=== PATIENT | female | born 1935 | race Caucasian/White ===

== ENCOUNTER 2016-12-06 14:45 | Emergency (ER) ==
[2016-12-06 14:49] VITALS: BP 166/75; TEMP 99.2; BMI 24.9
--- NOTE | 2016-12-06 16:21 | DI ---
EXAM: Views of the right knee HISTORY: Fall TECHNIQUE: AP lateral, sunrise views of the right knee were obtained. FINDINGS: There is moderate to severe loss of height seen along the medial compartment of the right knee. No acute fractures are seen. The patella is seen in normal position. There is no joint eff usion. IMPRESSION: There is moderate to severe arthritis seen along the medial compartment of the right kn ee. No acute fractures are seen within the right knee.
--- NOTE | 2016-12-06 16:41 | CT ---
EXAM: CT ABDOMEN AND PELVIS HISTORY: Fall, right hip pain and abdominal pain TECHNIQUE: CT abdomen and pelvis without intravenous contrast. Images were reconstructed using 5 m m section thickness. Coronal reformations were prepared. COMPARISON: None FINDINGS: Diagnostic limitations exist without including contrast enhanced images. No evidence of hepatic or splenic injury. Gallbladder, pancreas and adrenal glands appear normal. There is no evidence of re nal obstruction or hematoma. Mild atherosclerotic disease. Small hiatal hernia. Gaseous distension of the rectum. Bowel gas pattern is otherwise unremarkable. No bowel wall hematoma is obvious. Urinary bladder is intact. No uterus is identified. There is no evidence of ascites or hemoperitoneum. No ventral abdominal wall hernia. The bones appear zach neralized. Degenerative changes of the lumbosacral junction. There is a nondisplaced transverse ri ght femoral neck fracture. No other fractures. Joints are intact. Lung bases reveal mild dependen t atelectasis. No pneumoperitoneum. IMPRESSION: 1. Right femoral neck fracture. 2. No organ injury identified.
[2016-12-06] MEDS ORDERED: SODIUM CHLORIDE 1,000 ML IV SCH (17:00)
--- NOTE | 2016-12-06 17:14 | ED.PDOC ---
General ED Provider: Dr. 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 Symptoms Are: Still present Initial Severity: Moderate Current Severity: Moderate Character: Reports: Aching Aggravating: Reports: Movement, Weight-bearing, Ambulation, Palpation Alleviating: Reports: Rest, Immobilization Associated Signs and Symptoms: Denies: LOC, Confusion, Memory loss, Lethargy, Vomiting, Bleeding, Bruising, Swelling, Extremity disuse, Painful respiration, Hoarseness, Dysphagia, Hemoptysis, Significant blood loss Nexus Low Risk Criteria: No post-midline CS tender, No evidence of intoxicat., No Altered LOC, No focal neuro deficit, No distracting injuries Glascow Coma Scale (see protocol): 15, denied neck and back pain Review of Systems - Review Of Systems Constitutional: Reports: No symptoms Eyes: Reports: No symptoms Ears, Nose, Mouth, Throat: Reports: No symptoms Respiratory: Reports: No symptoms Cardiac: Reports: No symptoms GI: Reports: No symptoms : Reports: No symptoms Musculoskeletal: Reports: Joint pain (right hip, knee, elbow ) Skin: Reports: No symptoms Neurological: Reports: No symptoms Endocrine: Reports: No symptoms Hematologic/Lymphatic: Reports: No symptoms All Other Systems: Reviewed and Negative Past Medical History - Past Medical History Previously Healthy: No Endocrine: Reports: Hyperthyroid, Dyslipidemia Cardiovascular: Reports: None Respiratory: Reports: None Hematological: Reports: None Gastrointestinal: Reports: PUD Genitourinary: Reports: None Neuro/Psych: Reports: None Musculoskeletal: Reports: None Cancer: Reports: None Last Menstrual Period: n/a - Surgical History General Surgical History: Reports: Hysterectomy, Other (THYROIDECTOMY) - Family History Family History: Reports: Unknown - Social History Smoking Status: Never smoker Hx Substance Use: No Alcohol Screening: None Physical Exam - Physical Exam Appearance: Well-appearing, No pain distress, Well-nourished Eyes: FAITH, EOMI, Conjunctiva clear ENT: Ears normal, Nose normal, Oropharynx normal Respiratory: Airway patent, Breath sounds clear, Breath sounds equal, Respirations nonlabored Cardiovascular: RRR, Pulses normal, No rub, No murmur GI/: Soft, Nontender, No masses, Bowel sounds normal, No Organomegaly Musculoskeletal: Limited ROM (right hip abrasion right elbow and right knee) Skin: Warm, Dry, Normal color Neurological: Sensation intact, Motor intact, Reflexes intact, Cranial nerves intact, Alert, Oriented Psychiatric: Affect appropriate, Mood appropriate Interpretation - Radiology Interpretation Radiology Interpretation By: Radiologist (fracture femoral neck right sided) Physician Notification - Case Discussed Physician Notified: NELIA GOMEZ Time of Notification: 18:10 (TRANSFER ) Critical Care Note - Critical Care Note Total Time (mins): 0 Course - Course Orders, Labs, Meds: Orders Category Date Time Status EKG-(IP & OP ONLY) DAILY CARDIO 12/08/16 06:00 Stop Req EKG-(IP & OP ONLY) DAILY CARDIO 12/09/16 06:00 Stop Req GIVE HS SNACK 2100 CARE 12/06/16 17:01 Inactive INTAKE & OUTPUT Q8HR CARE 12/06/16 16:59 Inactive CREATINE KINASE Q8H LAB 12/06/16 23:15 Stop Req TROPONIN I Q8H LAB 12/06/16 23:15 Ordered TROPONIN I Q8H LAB 12/07/16 07:15 Ordered Morphine Sulfate [Morphine 4 mg/ml Syringe] MEDS 12/06/16 17:44 Discontinued 2 mg IV ONCE STA Ondansetron HCl/Pf [Zofran 4 mg/2 ml] MEDS 12/06/16 17:44 Discontinued 4 mg IVP ONCE STA CT ABDOMEN/PELVIS WO CONTRAST Stat RADS 12/06/16 15:26 Completed KNEE, RIGHT 4 VIEWS Stat RADS 12/06/16 15:26 Completed Medications Discontinued Medications Generic Name Dose Route Start Last Admin Trade Name Freq PRN Reason Stop Dose Admin Morphine Sulfate 2 mg 12/06/16 17:44 12/06/16 18:14 Morphine 4 Mg/Ml Syringe IV 12/06/16 17:45 2 mg ONCE STA Administration Ondansetron HCl 4 mg 12/06/16 17:44 12/06/16 18:13 Zofran 4 Mg/2 Ml IVP 12/06/16 17:45 4 mg ONCE STA Administration Vital Signs: Temp Pulse Resp BP Pulse Ox 12/06/16 14:46 99.2 F 89 20 166/75 H 93 L Departure - Departure Time of Disposition: 18:00 (AT 6:20P HEAR RATE DROPED TO 38 BUT FLUID CHALLENGE BROUGHT HEART RATE AT 6:34 PM 75 BPM ) Disposition: TSF SHORT-TRM HOSP Discharge Problem: Hip pain, right Hip fracture, right Qualifiers: Fracture type: closed Instructions: Hip Fracture (ED) Condition: Good Pt referred to PMD for follow-up: No Additional Instructions: Please call your Family Physician as soon as possible to schedule a follow-up appointment. Allergies/Adverse Reactions: Allergies Penicillins Adverse Reaction (Verified 05/20/14 19:37) Sulfa (Sulfonamide Antibiotics) Adverse Reaction (Verified 12/06/16 14:51) Home Medications: Ambulatory Orders Aspirin [Aspirin EC] 81 mg PO DAILYWM 05/20/14 Calcium Carb & Citrate/Vit D3 [Calcium + D3 ER Tablet] 1 each PO DAILY 05/20/14 Pravastatin Sodium [Pravachol] 1 tab PO DAILY 05/20/14 Methimazole 5 mg PO DAILY 12/06/16 Disposition Discussed With: Patient
[2016-12-06] MEDS ORDERED: ZOFRAN 4 MG/2 ML IVP STA (17:44)
[2016-12-06] MEDS ORDERED: MORPHINE 4 MG/ML SYRINGE IV STA (17:44)
[2016-12-07] MEDS ORDERED: ASPIRIN EC PO SCH (08:00)
[2016-12-07] MEDS ORDERED: METHIMAZOLE 5 MG PO SCH (09:00)
[2016-12-07] MEDS ORDERED: PRAVACHOL PO SCH (09:00)
== END 2016-12-06 19:00 | disposition short-term general hospital (02) ==
LOC: ED 14:45
DX: S72.001A Fracture of unspecified part of neck of right femur, initial encounter for closed fracture (principal); M25.521 Pain in right elbow; M25.561 Pain in right knee; Z79.899 Other long term (current) drug therapy; V09.9XXA Pedestrian injured in unspecified transport accident, initial encounter
CPT/HCPCS: 96374; 96375; 99284

== ENCOUNTER 2016-12-06 19:05 | Outpatient (CLI) ==
[2016-12-06 14:49] VITALS: BMI 24.9
== END 2016-12-06 19:06 ==
LOC: AMBL 19:05
PROVIDERS: ATTEND Family Medicine
DX: S72.001A Fracture of unspecified part of neck of right femur, initial encounter for closed fracture (principal); V09.9XXA Pedestrian injured in unspecified transport accident, initial encounter